=== PATIENT | male | born 1995 | race Hispanic/Latino ===

== ENCOUNTER 2017-10-20 19:17 | Emergency (ER) | payer SELFPAY ==
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
[2017-10-20 20:10] LABS: MCV 89.9 fL (80-100); MPV 7.9 fL (7.6-11.3)
[2017-10-20 20:10] LABS: Barbiturates NEGATIVE; Benzodiazepines POSITIVE; Cocaine NEGATIVE; METHAMPHETAM NEGATIVE; Opiates NEGATIVE; Phencyclidine NEGATIVE; THC Cannibis NEGATIVE
[2017-10-20 20:14] LABS: Absolute Lymphocytes (CBC) 1.2 K/uL (0.7-4.9); Absolute Monocytes 0.6 K/uL (0.1-1.3); Absolute Neutrophil 6.3 K/uL (1.8-8.0); Basophils % 0.2 % (0-1.3); Hematocrit 44.5 % (39.6-49.0); Lymphocytes % 14.8 % (15.3-44.8); MCH 31.6 pg (27.0-35.0); Monocytes % 7.2 % (3.3-12.3); RBC Red Blood Cell Count 4.95 M/uL (4.33-5.43)
[2017-10-20 20:21] LABS: Bicarbonate 27 mEq/L (21-31); Glucose Level 88 mg/dL (65-120); Potassium 3.4 mEq/L (3.6-5.0); Sodium Level 140 mEq/L (135-145)
[2017-10-20 20:24] LABS: Protime INR 1.08
[2017-10-20 20:28] LABS: Urine Blood TRACE (NEG); Urine Glucose NEGATIVE (NEG); Urine Protein NEGATIVE (NEG)
[2017-10-20 20:30] LABS: ALT/SGPT 12 IU/L (10-60); AST/SGOT 17 IU/L (10-42); Albumin 4.7 g/dL (3.2-5.5); Alkaline Phosphatase 57 IU/L (42-121); BUN Blood Urea Nitrogen 7 mg/dL (6-20); Bilirubin Direct 0.1 mg/dL (0-0.2); Bilirubin Total 0.8 mg/dL (0.3-1.2); Protein, Total 7.6 g/dL (6.0-8.3)
[2017-10-20 20:31] LABS: Alcohol Serum/Plasma < 10 mg/dl; Salicylates Level < 4.0 mg/dl (<30)
[2017-10-20] MEDS ORDERED: POTASSIUM CL SA 10 MEQ TAB PO ONE ×2 (21:01→21:03)
--- NOTE | 2017-10-21 07:36 | EKG ---
Test Date: 2017-10-20 Test Time: 19:40:26 Rn Staff: PREMA MEASUREMENT RESULTS: Intervals: Rate: 96 IL: 138 QRSD: 88 QT: 366 QTc: 462 [place]: P: 76 IL: 138 QRS: 74 T: 57 INTERPRETIVE STATEMENTS: Normal sinus rhythm Normal ECG No previous ECG available for comparison Electronically Signed On 10-21-17 07:34:52 CDT by Scooby Huynh
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
--- NOTE | 2017-10-21 11:18 | ER ---
Nurse's Notes [facility] Name: Dami Garnica Age: 21 yrs Sex: Male : 1995 Arrival Date: 10/20/2017 Time: 19:19 Bed 7 Private MD: Diagnosis: Abuse of non-psychoactive substances;Suicidal ideations Presentation: 10/20 19:15 Presenting complaint: EMS states: that at approx 1845 pt took Valium 5 mg - 6 tabs, fc NyQuil 12 oz and unk amt of Augmentin 875 mg - (no more than 14 tabs). to hurt himself. Mother called EMS and told them that pt had been threatening to hurt himself all day and the police were out to the house earlier. Transition of care: patient was not received from another setting of care. Onset of symptoms was October 20, 2017 at 18:45. Care prior to arrival: Medication(s) given: Normal saline infusion, 500 mL, IV initiated. 18 GA, in the right antecubital area. 19:15 Method Of Arrival: EMS: [facility] 19:15 Acuity: YASEMIN 2 fc 19:32 Presenting complaint: EMS states: that they just found out from police dept that pt had fc been on Facebook live earlier today stating that he was going to hurt himself and he was taking pills. His family called [place] police who then called [facility] for welfare check. Upon their arrival pt denied any problems or that he was suicidal. They then left. Then at approx 1845 EMS was toned for pt who had taken multiple medications. Historical: - Allergies: 19:39 No Known Allergies; fc - Home Meds: 19:39 None [Active]; fc - PMHx: 19:39 None; fc - PSHx: 19:39 None; fc - Immunization history:: Last tetanus immunization: unknown. - Social history:: Smoking status: Patient/guardian denies using tobacco, Patient uses alcohol, occasionally. Patient/guardian denies using street drugs. - Family history:: not pertinent. - Hospitalizations: : No recent hospitalization is reported. Screenin:27 Abuse screen: Denies threats or abuse. Nutritional screening: No deficits noted. fc Tuberculosis screening: No symptoms or risk factors identified. Fall Risk None identified. Assessment: 19:25 General: Appears in no apparent distress. slender, Behavior is calm, cooperative. Pain: bb Denies pain. Neuro: Level of Consciousness is awake, alert, obeys commands, Oriented to person, place, time, situation. Cardiovascular: Heart tones S1 S2 present Capillary refill < 3 seconds Patient's skin is warm and dry. Pulses are all present. Edema is absent. Respiratory: Respiratory effort is even, unlabored, Respiratory pattern is regular, Breath sounds are clear bilaterally. GI: Abdomen is flat, Bowel sounds present X 4 quads. Abd is soft and non tender X 4 quads. Derm: Skin is pink, warm \T\ dry. Musculoskeletal: Circulation, motion, and sensation intact. 19:45 Reassessment: Spoke with Jeanine at poison control center. She recommends Toxic work up fc along with EKG and 4 hr post Tylenol level. IVF. Charcoal with no sorbitol if pt is awake enough to drink. Continue to monitor EKG and treat as needed for the abd pain and sleepiness. 20:04 Reassessment: Patient appears in no apparent distress at this time. Patient and/or aa1 family updated on plan of care and expected duration. Pain level reassessed. Patient is alert, oriented x 3, equal unlabored respirations, skin warm/dry/pink. Awaiting lab results. 20:45 Reassessment: Patient appears in no apparent distress at this time. Patient and/or aa1 family updated on plan of care and expected duration. Pain level reassessed. Patient is alert, oriented x 3, equal unlabored respirations, skin warm/dry/pink. Awaiting mental health evaluation. 21:12 Reassessment: Mental Health deputy at bedside. bb 22:30 Reassessment: Patient and/or family updated on plan of care and expected duration. Pain bb level reassessed. 10/21 00:23 Reassessment: spoke to poison control updated on drug levels. Pt A\T\O x 4, resp bb unlabored, resting quietly. Sitter at bedside. 01:34 Reassessment: Patient is alert, oriented x 3, equal unlabored respirations, skin bb warm/dry/pink. pt resting quietly, no signs of distress noted. 02:44 Reassessment: pt appears to be sleeping, eyes closed, resp unlabored, no signs of bb discomfort noted. Sitter at bedside. 03:34 Reassessment: pt appears to be sleeping, eyes closed, resp unlabored, no signs of bb distress noted, sitter at bedside. 05:58 Reassessment: pt appears to be sleeping, eyes closed, resp unlabored, no signs of bb discomfort noted, sitter at bedside. 07:15 Reassessment: Patient appears in no apparent distress at this time. pt appears to be ch sleeping, no s/s of distress. Abelardo sitting outside room. 07:17 Neuro: No deficits noted. Respiratory: Airway is patent Respiratory effort is even, ch unlabored, Respiratory pattern is regular. Derm: Skin is pink, warm \T\ dry. Psych: 10/20 19:25 Subjective: Patient's mood is sad, Delusions are denied, Having thoughts of pt denies bb suicidal ideations at this time but told police that he was trying to kill himself. Objective: Patient is cooperative, Speech is normal. Interventions: Removed personal items and placed in bag. Patient placed in hospital gown. Urine collected and sent for urine drug test. Suicide Risk Assessment: Sad Person Scale: Sex of patient: Male: Score 1 point. Age of patient: Score 1 point if patient 15-34. Substance Abuse: Score 1 point if patient abuses alcohol or drugs. Rational Thinking: Score 0 point if patient has rational thinking. TOTAL POINTS: If total points are 3-4, proposed clinical action is close follow-up/consider hospitalization. Safety Checks: Personal items have been removed. Door is open. pt attempted overdose. 10/21 11:26 Commitment: Patient will be a voluntary commitment. hj Vital Signs: 10/20 19:15 BP 143 / 99; Pulse 97; Resp 18; Temp 98.2(O); Pulse Ox 99% on R/A; Weight 58.97 kg (R); fc Height 5 ft. 4 in. (162.56 cm) (R); Pain 0/10; 20:04 BP 128 / 80; Pulse 85; Resp 16; Pulse Ox 97% on R/A; Pain 0/10; aa1 20:45 BP 129 / 78; Pulse 92; Resp 16; Pulse Ox 98% on R/A; Pain 0/10; aa1 21:48 BP 136 / 88; Pulse 87; Resp 16; Pulse Ox 98% on R/A; mt 10/21 00:29 BP 137 / 78; Pulse 78; Resp 16; Temp 97.9(O); Pulse Ox 100% ; mt 04:36 BP 115 / 68; Pulse 89; Resp 16; Pulse Ox 99% on R/A; mt 06:56 BP 130 / 77; Pulse 70; Resp 16; Pulse Ox 100% on R/A; mt 10:35 BP 116 / 76; Pulse 61; Resp 17; Pulse Ox 99% on R/A; jb1 11:27 BP 118 / 75; Pulse 65; Resp 18; Temp 98.1; Pulse Ox 100% on R/A; hj 10/20 19:15 Body Mass Index 22.31 (58.97 kg, 162.56 cm) ED Course: 10/20 19:15 Arm band placed on Patient placed in an exam room, on a stretcher. fc 19:15 Patient has correct armband on for positive identification. Bed in low position. Call fc light in reach. Side rails up X2. personnel monitor on. Pulse ox on. NIBP on. 19:15 No provider procedures requiring assistance completed. Maintain EMS IV. Dressing fc intact. Good blood return noted. Site clean \T\ dry. Gauge \T\ site: 18 gauge to right a/c. 19:19 Patient arrived in ED. em1 19:19 Raman Alicea MD is Attending Physician. rn 19:25 Safety Checks: Personal items have been removed The door is open or patient has been bb placed in a hallway bed/chair. There are no family/friend visitors at this time. 19:25 Warm blanket given. Pillow given. bb 19:26 Triage completed. 19:30 Safety checks: Items removed: yes. Door open/sign placed on door: yes. Family/friend mt present: no. 19:45 Safety Checks: Personal items have been removed The door is open or patient has been bb placed in a hallway bed/chair. There are no family/friend visitors at this time. 19:45 Safety checks: Items removed: yes. Door open/sign placed on door: yes. Family/friend mt present: no. 19:47 Le Burkett RN is Primary Nurse. bb 20:00 Safety Checks: Personal items have been removed The door is open or patient has been bb placed in a hallway bed/chair. There are no family/friend visitors at this time. 20:00 Safety checks: Items removed: yes. Door open/sign placed on door: yes. Family/friend mt present: no. 20:15 Safety Checks: Personal items have been removed The door is open or patient has been bb placed in a hallway bed/chair. There are no family/friend visitors at this time. 20:15 Safety checks: Items removed: yes. Door open/sign placed on door: yes. Family/friend mt present: no. 20:30 Safety Checks: Personal items have been removed The door is open or patient has been bb placed in a hallway bed/chair. There are no family/friend visitors at this time. 20:30 Safety checks: Items removed: yes. Door open/sign placed on door: yes. Family/friend mt present: no. 20:45 Safety Checks: Personal items have been removed The door is open or patient has been bb placed in a hallway bed/chair. There are no family/friend visitors at this time. 20:45 Safety checks: Items removed: yes. Door open/sign placed on door: yes. Family/friend mt present: no. 21:00 Safety Checks: Personal items have been removed The door is open or patient has been bb placed in a hallway bed/chair. There are no family/friend visitors at this time. 21:00 Safety checks: Items removed: yes. Door open/sign placed on door: yes. Family/friend mt present: no. 21:15 Safety checks: Items removed: yes. Door open/sign placed on door: yes. Family/friend mt present: no. 21:30 Safety checks: Items removed: yes. Door open/sign placed on door: yes. Family/friend mt present: no. 21:45 Safety checks: Items removed: yes. Door open/sign placed on door: yes. Family/friend mt present: no. 22:00 Safety checks: Items removed: yes. Door open/sign placed on door: yes. Family/friend mt present: no. 22:15 Safety checks: Items removed: yes. Door open/sign placed on door: yes. Family/friend mt present: no. 22:30 Safety checks: Items removed: yes. Door open/sign placed on door: yes. Family/friend mt present: yes. 22:45 Safety checks: Items removed: yes. Door open/sign placed on door: yes. Family/friend mt present: yes. 23:00 Safety checks: Items removed: yes. Door open/sign placed on door: yes. Family/friend mt present: yes. 23:15 Safety checks: Items removed: yes. Door open/sign placed on door: yes. Family/friend mt present: no. 23:30 Safety checks: Items removed: yes. Door open/sign placed on door: yes. Family/friend mt present: no. 23:45 Safety checks: Items removed: yes. Door open/sign placed on door: yes. Family/friend mt present: no. 10/21 00:00 Safety checks: Items removed: yes. Door open/sign placed on door: yes. Family/friend mt present: no. 00:15 Safety checks: Items removed: yes. Door open/sign placed on door: yes. Family/friend mt present: no. 00:30 Safety checks: Items removed: yes. Door open/sign placed on door: yes. Family/friend mt present: no. 00:45 Safety checks: Items removed: yes. Door open/sign placed on door: yes. Family/friend mt present: no. 01:00 Safety checks: Items removed: yes. Door open/sign placed on door: yes. Family/friend mt present: no. 01:15 Safety checks: Items removed: yes. Door open/sign placed on door: yes. Family/friend mt present: no. 01:30 Safety checks: Items removed: yes. Door open/sign placed on door: yes. Family/friend mt present: no. 01:45 Safety checks: Items removed: yes. Door open/sign placed on door: yes. Family/friend mt present: no. 02:00 Safety checks: Items removed: yes. Door open/sign placed on door: yes. Family/friend mt present: no. 02:15 Safety checks: Items removed: yes. Door open/sign placed on door: yes. Family/friend mt present: no. 02:30 Safety checks: Items removed: yes. Door open/sign placed on door: yes. Family/friend mt present: no. 02:45 Safety checks: Items removed: yes. Door open/sign placed on door: yes. Family/friend mt present: no. 03:00 Safety checks: Items removed: yes. Door open/sign placed on door: yes. Family/friend mt present: no. 03:15 Safety checks: Items removed: yes. Door open/sign placed on door: yes. Family/friend mt present: no. 03:30 Safety checks: Items removed: yes. Door open/sign placed on door: yes. Family/friend mt present: no. 03:45 Safety checks: Items removed: yes. Door open/sign placed on door: yes. Family/friend mt present: no. 04:00 Safety checks: Items removed: yes. Door open/sign placed on door: yes. Family/friend mt present: no. 04:15 Safety checks: Items removed: yes. Door open/sign placed on door: yes. Family/friend mt present: no. 04:30 Safety checks: Items removed: yes. Door open/sign placed on door: yes. Family/friend mt present: no. 04:45 Safety checks: Items removed: yes. Door open/sign placed on door: yes. Family/friend mt present: no. 05:00 Safety checks: Items removed: yes. Door open/sign placed on door: yes. Family/friend mt present: no. 05:15 Safety checks: Items removed: yes. Door open/sign placed on door: yes. Family/friend mt present: no. 05:30 Safety checks: Items removed: yes. Door open/sign placed on door: yes. Family/friend mt present: no. 05:45 Safety checks: Items removed: yes. Door open/sign placed on door: yes. Family/friend mt present: no. 06:00 Safety checks: Items removed: yes. Door open/sign placed on door: yes. Family/friend mt present: no. 06:15 Safety checks: Items removed: yes. Door open/sign placed on door: yes. Family/friend mt present: no. 06:15 Safety checks: Items removed: yes. Door open/sign placed on door: yes. Family/friend mt present: no. 06:30 Safety checks: Items removed: yes. Door open/sign placed on door: yes. Family/friend mt present: no. 06:45 Safety checks: Items removed: yes. Door open/sign placed on door: yes. Family/friend mt present: no. 06:58 Report given to Promise DEVINE bb 07:00 Safety checks: Items removed: yes. Door open/sign placed on door: yes. Family/friend mt present: no. 07:15 Primary Nurse role handed off by Le Burkett RN 07:15 Promise Munoz, KAYLA is Primary Nurse. 07:15 transfer. Safety Checks: Personal items have been removed The door is open or patient ch has been placed in a hallway bed/chair. There are no family/friend visitors at this time. 07:15 Patient has correct armband on for positive identification. 07:30 Safety Checks: Personal items have been removed The door is open or patient has been ch placed in a hallway bed/chair. There are no family/friend visitors at this time. 07:45 Safety Checks: Personal items have been removed The door is open or patient has been iw placed in a hallway bed/chair. sitter at bedside. 08:00 Safety Checks: Personal items have been removed The door is open or patient has been iw placed in a hallway bed/chair. sitter at beside. 08:15 Safety Checks: Personal items have been removed The door is open or patient has been iw placed in a hallway bed/chair. sitter at bedside There are no family/friend visitors at this time. 08:30 Safety Checks: Personal items have been removed The door is open or patient has been iw placed in a hallway bed/chair. sitter at bedside There are no family/friend visitors at this time. 09:00 Safety Checks: Personal items have been removed The door is open or patient has been iw placed in a hallway bed/chair. sitter at bedside There are no family/friend visitors at this time. 09:15 Safety Checks: Personal items have been removed The door is open or patient has been iw placed in a hallway bed/chair. sitter at bedside There are no family/friend visitors at this time. 09:30 Safety Checks: Personal items have been removed The door is open or patient has been iw placed in a hallway bed/chair. Sitter at bedside There are no family/friend visitors at this time. 09:45 Safety Checks: Personal items have been removed The door is open or patient has been iw placed in a hallway bed/chair. Sitter at bedside There are no family/friend visitors at this time. 10:00 Safety Checks: Personal items have been removed The door is open or patient has been iw placed in a hallway bed/chair. Sitter at bedside There are no family/friend visitors at this time. 10:27 Safety checks: Items removed: yes. Door open/sign placed on door: yes. Family/friend jb1 present: no. 10:47 Safety checks: Items removed: yes. Door open/sign placed on door: yes. Family/friend jb1 present: no. 11:15 Attending Physician role handed off by Raman Alicea MD [facility] 11:15 Gerson Diaz MD is Attending Physician. tra 11:27 IV discontinued, intact, bleeding controlled, No redness/swelling at site. Pressure hj dressing applied. Administered Medications: 10/20 19:20 Drug: NS 0.9% 1000 ml Route: IV; Rate: 1000 ml; Site: right antecubital; [facility] 10/21 07:42 Follow up: IV Status: Completed infusion; IV Intake: 1000ml 10/20 20:44 Drug: Potassium Chloride 40 mEq Route: PO; [facility] 10/21 07:42 Follow up: Response: No adverse reaction; Marked relief of symptoms ch Intake: 07:42 IV: 1000ml; Total: 1000ml. Outcome: 11:17 Discharge ordered by . [facility] 11:26 Discharged to home ambulatory, with family. 11:26 Condition: stable 11:26 Discharge instructions given to patient, family, Instructed on discharge instructions, follow up and referral plans. Demonstrated understanding of instructions, follow-up care. 11:27 Patient left the ED. Signatures: Abelardo Cabezas1 Promise Munoz RN RN ch Kern, Alissa, RN RN [facility] Gerson Diaz MD MD cha Chretien, Felicia, RN Le Noble RN RN bb Williams, Irene, RN RN iw Nieto, Roman, MD MD rn Martinez, Eric emRobin iWlhelm RN RN hj Thompson, Moriah mt Corrections: (The following items were deleted from the chart) 10/20 21:52 21:49 Safety checks: Items removed: yes. Door open/sign placed on door: yes. mt Family/friend present: no. mt 10/21 07:00 06:57 Safety checks: Items removed: yes. Door open/sign placed on door: yes. mt Family/friend present: no. mt 10:08 10:05 Safety Checks: Personal items have been removed The door is open or patient has iw been placed in a hallway bed/chair. sitter at bedside iw
== END 2017-10-21 11:27 | disposition home or self-care (01) ==
LOC: ER 19:17
DX: F55.8 Abuse of other non-psychoactive substances (principal)
CPT/HCPCS: 36415; 80048; 80076; 80307; 80320; 80329; 81003; 85025; 85610; 85730; 93005; 96360; 96361; 99285